=== PATIENT | male | born 1975 | race African-American/Black ===

== ENCOUNTER 2020-11-22 00:45 | Emergency (ER) | payer SELFPAY ==
[~2020-11-22] VITALS: Ht 170.2 cm; Wt 81.6 kg
[2020-11-22 00:54] VITALS: BP 97/66
[2020-11-22 02:07] LABS: BASOPHILS # (AUTO) 0.1 K/uL (0.00-0.22); BASOPHILS % (AUTO) 0.7 % (0.0-2.0); EOSINOPHILS % (AUTO) 0.1 % (0.0-4.0); HEMATOCRIT 51.3 % (36-52); HEMOGLOBIN 17.5 g/dL (12.0-18.0); LYMPHOCYTES # (AUTO) 1.4 K/uL (2.0-11.5); LYMPHOCYTES % (AUTO) 7.3 % (20.5-51.1); MEAN CORPUSCULAR HEMOGLOBIN 31 pg (27-31); MEAN CORPUSCULAR HGB CONC 34 g/dL (33-37); MEAN CORPUSCULAR VOLUME 91.9 fL (80-94); MONOCYTES % (AUTO) 5.4 % (1.7-9.3); NEUTROPHILS # (AUTO) 16.5 K/uL (1.8-7.7); NEUTROPHILS % (AUTO) 86.5 % (42.2-75.2); PLATELET COUNT (AUTO) 311 K/uL (140-450); RED BLOOD CELL COUNT(AUTO) 5.58 MIL/uL (4.20-6.10); RED CELL DISTRIBUTION WIDTH 13.4 % (11.6-13.7); WHITE BLOOD COUNT (AUTO) 19.1 K/uL (4.8-10.8)
[2020-11-22] MEDS ORDERED: ceFAZolin 1,000 MG VIAL ONE (02:12)
[2020-11-22 02:18] LABS: ANION GAP 19.5 (8-16); CARBON DIOXIDE 23.8 mmol/L (21-32); CREATININE 1.2 mg/dL (0.6-1.3); POTASSIUM 4.3 mmol/L (3.5-5.1)
[2020-11-22] MEDS: KETOROLAC 30 MG/ML VIAL IVP ONE (02:20)
[2020-11-22 02:23] LABS: ALBUMIN 4.9 g/dL (3.4-5.0); TOTAL BILIRUBIN 0.7 mg/dL (0.0-1.0)
[2020-11-22] MEDS: LORazepam 2 MG/ML VIAL IVP ONE (02:45)
[2020-11-22 05:03] VITALS: BP 136/86
== END 2020-11-22 05:19 | disposition home or self-care (01) ==
LOC: MED 00:45
DX: S00.81XA Abrasion of other part of head, initial encounter (principal); F10.129 Alcohol abuse with intoxication, unspecified; R51.9 Headache, unspecified; M54.2 Cervicalgia; M54.5 Low back pain; V27.4XXA Motorcycle driver injured in collision with fixed or stationary object in traffic accident, initial encounter; Y93.89 Activity, other specified; Y92.89 Other specified places as the place of occurrence of the external cause; Y99.8 Other external cause status
CPT/HCPCS: 36415; 70450; 70486; 71260; 72125; 73060; 73090; 73130; 73562; 74177; 80053; 85025; 96374; 99285; G0482; J2060; 90715; J0690; J1885